=== PATIENT | female | born 1965 | race Caucasian/White ===

== ENCOUNTER → 2017-03-18 | Outpatient (CLI) | payer BC ==
[2017-03-18 19:55] LABS: ALT 32 U/L (9-52); AST 29 U/L (14-36); Albumin 4.1 g/dL (3.5-5.0); Alkaline Phosphatase 74 U/L (38-126); Anion Gap 9 mmol/L; Blood Urea Nitrogen 18 mg/dL (7-17); Calcium 9.5 mg/dL (8.4-10.2); Carbon Dioxide 28 mmol/L (22-30); Chloride 104 mmol/L (98-107); Glucose 81 mg/dL (74-99); Potassium 4.4 mmol/L (3.5-5.1); Sodium 141 mmol/L (137-145); Total Bilirubin 0.3 mg/dL (0.2-1.3); Total Protein 6.8 g/dL (6.3-8.2)
[2017-03-18 20:09] LABS: T4, Free (Free Thyroxine) 0.97 ng/dL (0.78-2.19)
[2017-03-19 01:45] LABS: Vitamin D 25 Hydroxy 21.1 ng/mL (30.0-100.0)
== END | disposition home or self-care (01) ==
LOC: MMGSC 10:21
PROVIDERS: ATTEND Obstetrics & Gynecology
DX: F41.9 Anxiety disorder, unspecified (principal); Z78.0 Asymptomatic menopausal state
CPT/HCPCS: 36415; 80053; 82306; 82607; 82670; 83001; 84403; 84439; 84443

== ENCOUNTER → 2017-05-01 | Outpatient (CLI) | payer BC | LOC: MMGSC 14:09 | PROVIDERS: ATTEND Obstetrics & Gynecology | DX: N95.9 Unspecified menopausal and perimenopausal disorder (principal) | CPT/HCPCS: 36415; 82670; 84403 ==

== ENCOUNTER → 2019-01-29 | Outpatient (CLI) | payer BC ==
--- NOTE | 2019-02-01 07:57 | MM ---
Reason for exam: screening (asymptomatic). Last mammogram was performed 5 years and 2 months ago. History: Patient is postmenopausal. Took hormonal contraceptives for 3 years 8 months beginning at age 16. Physical Findings: A clinical breast exam by your physician is recommended on an annual basis and results should be correlated with mammographic findings. MG Screening Mammo w CAD Bilateral CC and MLO view(s) were taken. Prior study comparison: November 17, 2013, bilateral MG screening mammo w CAD. October 10, 2009, bilateral digital screening mammogram. The breast tissue is heterogeneously dense. This may lower the sensitivity of mammography. No significant changes when compared with prior studies. ASSESSMENT: Benign, BI-RAD 2 RECOMMENDATION: Routine screening mammogram of both breasts in 1 year.
== END | disposition home or self-care (01) ==
LOC: RADMAMWWP 08:50
PROVIDERS: ATTEND Obstetrics & Gynecology
DX: Z12.31 Encounter for screening mammogram for malignant neoplasm of breast (principal)
CPT/HCPCS: 77067

== ENCOUNTER → 2020-07-03 | Outpatient (CLI) | payer BC ==
--- NOTE | 2020-07-04 13:59 | MM ---
Reason for exam: screening (asymptomatic). Last mammogram was performed 1 year and 5 months ago. History: Patient is postmenopausal. Took hormonal contraceptives for 3 years 8 months beginning at age 16. Physical Findings: A clinical breast exam by your physician is recommended on an annual basis and results should be correlated with mammographic findings. MG Screening Mammo w CAD Bilateral CC and MLO view(s) were taken. Prior study comparison: January 29, 2019, bilateral MG screening mammo w CAD. November 17, 2013, bilateral MG screening mammo w CAD. The breast tissue is heterogeneously dense. This may lower the sensitivity of mammography. There is chronic nodularity in the right breast. No significant changes when compared with prior studies. ASSESSMENT: Benign, BI-RAD 2 RECOMMENDATION: Routine screening mammogram of both breasts in 1 year.
== END | disposition home or self-care (01) ==
LOC: RADMAMWWP 07:57
PROVIDERS: ATTEND Obstetrics & Gynecology
DX: Z12.31 Encounter for screening mammogram for malignant neoplasm of breast (principal); Z78.0 Asymptomatic menopausal state
CPT/HCPCS: 77067

== ENCOUNTER → 2021-09-05 | Outpatient (CLI) | payer BC ==
--- NOTE | 2021-09-06 08:30 | MM ---
Reason for Exam: Screening (asymptomatic). Last mammogram was performed 1 year(s) and 2 month(s) ago. Patient History: Menarche at age 10. First Full-Term at age 19. Postmenopausal. Hormonal Contraceptives, starting at age 16 for 3 years, 8 months. Currently using Estrogen and Progesterone, starting at age 52. Risk Values: Felicity 5 year model risk: 1.2%. NCI Lifetime model risk: 6.9%. Prior Study Comparison: 11/17/2013 Bilateral Screening Mammogram, [facility]. 01/29/2019 Bilateral Screening Mammogram, [facility]. 07/03/2020 Bilateral Screening Mammogram, [facility]. Tissue Density: The breast tissue is heterogeneously dense. This may lower the sensitivity of mammography. Findings: Analyzed By CAD. There is no suspicious group of microcalcifications or new suspicious mass in either breast. Overall Assessment: Negative, BI-RAD 1 Management: Screening Mammogram of both breasts in 1 year. A clinical breast exam by your physician is recommended on an annual basis and results should be correlated with mammographic findings. Electronically signed and approved by: Kapil Hernandez DO
== END | disposition home or self-care (01) ==
LOC: RADMAMWWP 14:35
PROVIDERS: ATTEND Obstetrics & Gynecology
DX: Z12.31 Encounter for screening mammogram for malignant neoplasm of breast (principal); Z78.0 Asymptomatic menopausal state
CPT/HCPCS: 77067

== ENCOUNTER → 2022-11-07 | Outpatient (CLI) | payer BC ==
--- NOTE | 2022-11-11 17:34 | CT ---
EXAMINATION TYPE: CT angio chest DATE OF EXAM: 11/07/2022 COMPARISON: None HISTORY: 57-year-old female R06.09, shortness of breath, dyspnea, low energy TECHNIQUE: Contiguous axial scanning of the chest performed with IV Contrast, patient injected with 1 00ml mL of Isovue 370. Coronal/sagittal MIP reconstructions performed. CT DLP: 138.3 mGycm Automated exposure control for dose reduction was used. FINDINGS: The heart is normal size without pericardial effusion or Borderline ectasia ascending aorta 3.5 cm. No thoracic lymphadenopathy by CT size criteria. Satisfactory opacification of the pulmonary arterial system without evidence of pulmonary embolus. 6 mm pulmonary nodule right apex should be reassessed in a short interval follow-up. Scattered biapic al pleural parenchymal scarring and mild subpleural reticular fibrosis in the upper lungs. Mild diffu se bronchial wall thickening. Dependent atelectasis and consolidation of pleural effusion. Small hiatal hernia. Otherwise, visualized upper abdomen shows hilar splenule. Bones: Anterior endplate spondylosis mid to lower thoracic spine. Degenerative change right sternocla vicular joint. IMPRESSION: 1. BRONCHIAL WALL THICKENING SUGGESTING SINUSITIS. AREAS OF DEPENDENT ATELECTASIS AND MILD NONSPECIFI C INTERSTITIAL FIBROSIS IN THE UPPER LUNGS. 2. 6 MM RIGHT APICAL PULMONARY NODULE. RECOMMEND FOLLOW-UP CT AND 6 MONTHS TO REASSESS. 3. NO EVIDENCE FOR PULMONARY EMBOLUS. 4. SMALL HIATAL HERNIA.
== END | disposition home or self-care (01) ==
LOC: RADCTMAIN 13:14
PROVIDERS: ATTEND Internal Medicine Critical Care Medicine
DX: K44.9 Diaphragmatic hernia without obstruction or gangrene (principal); J98.09 Other diseases of bronchus, not elsewhere classified; J98.11 Atelectasis; J84.10 Pulmonary fibrosis, unspecified; R91.1 Solitary pulmonary nodule; R06.09 Other forms of dyspnea; R06.02 Shortness of breath
CPT/HCPCS: 71275; Q9967

== ENCOUNTER → 2023-11-05 | Outpatient (CLI) | payer BC ==
--- NOTE | 2023-11-06 08:26 | MM ---
Reason for Exam: Screening (asymptomatic). Last mammogram was performed 2 year(s) and 2 month(s) ago. Patient History: Menarche at age 10. First Full-Term at age 19. Postmenopausal. Hormonal Contraceptives, starting at age 16 for 3 years, 8 months. Currently using Estrogen and Progesterone, starting at age 52. Risk Values: Felicity 5 year model risk: 1.3%. NCI Lifetime model risk: 6.6%. Prior Study Comparison: 01/29/2019 Bilateral Screening Mammogram, [facility]. 07/03/2020 Bilateral Screening Mammogram, [facility]. 09/05/2021 Bilateral MG screening mammo w CAD, [facility]. Tissue Density: The breasts are heterogeneously dense, which may obscure small masses. Findings: Analyzed By CAD. There is no suspicious group of microcalcifications or new suspicious mass in either breast. Overall Assessment: Negative, BI-RAD 1 Management: Screening Mammogram of both breasts in 1 year. . Patient should continue monthly self-breast exams. A clinical breast exam by your physician is recommended on an annual basis. This exam should not preclude additional follow-up of suspicious palpable abnormalities. Note on Felicity scores and lifetime risk: 1. A Felicity score greater than 3% is considered moderate risk. If this is the case, consider specialist referral to assess eligibility for a risk reducing agent. 2. If overall lifetime risk for the development of breast cancer is 20% or higher, the patient may qualify for future screening with alternating mammogram and breast MRI. Electronically signed and approved by: Jose Genao M.D. Radiologis
== END | disposition home or self-care (01) ==
LOC: RADMAMWWP 06:55
PROVIDERS: ATTEND Obstetrics & Gynecology
DX: Z12.31 Encounter for screening mammogram for malignant neoplasm of breast
CPT/HCPCS: 77067